=== PATIENT | male | born 1965 | race Two or more races ===

== ENCOUNTER 2024-04-01 06:48 | Emergency (ER) | payer OTHER ==
[~2024-04-01] VITALS: Ht 172.7 cm; Wt 68.9 kg
[2024-04-01] MEDS ORDERED: BACTRIM DS TAB1 EACH (07:28)
[2024-04-01 07:29] VITALS: BP 141/82; O2SAT 99
[2024-04-01] MEDS ORDERED: CEPHALEXIN750 MG (07:29)
[2024-04-01] MEDS ORDERED: CEFTRIAXONE SODIUM 1,000 MG VIAL IM ONE (08:30)
== END 2024-04-01 09:44 | disposition home or self-care (01) ==
LOC: ER 06:50
DX: L02.415 Cutaneous abscess of right lower limb (principal)

== ENCOUNTER 2024-04-01 10:05 | Outpatient (CLI) | payer OTHER ==
[~2024-04-01 10:05] MED LIST: BACTRIM DS TAB1 EACH; CEPHALEXIN750 MG
== END 2024-04-01 10:06 | disposition home or self-care (01) ==
LOC: LAB 10:05
PROVIDERS: ATTEND Specialist
DX: L02.91 Cutaneous abscess, unspecified (principal)